=== PATIENT | female | born 1945 ===

== ENCOUNTER 2017-11-04 14:07 | Emergency (ER) | payer MEDICARE, OTHER ==
[2017-11-04 14:47] VITALS: BP 156/85; PULSE 58; RESP 17; TEMP 97; O2SAT 97
--- NOTE | 2017-11-04 17:01 | ED PDOC ---
Lower Extremity Pain/Injury Time Seen by Provider: 11/04/17 16:08 Chief Complaint (Nursing): Lower Extremity Problem/Injury Chief Complaint (Provider): Lower Extremity Problem/Injury History Per: Patient History/Exam Limitations: no limitations Onset/Duration Of Symptoms: Days (x1) Current Symptoms Are (Timing): Still Present Additional Complaint(s): 72 year old female with medical history of hypertension and osteoporosis, who presents to the emergency department with a complaint of left hip pain radiating to lower back and left thigh ongoing since this morning when she woke up. Denied any fever, chills, nausea, vomiting, difficulty urinating, bloody urine, incontinence, diarrhea, constipation, weakness or paresthesia. PMD: Rebekah Panchal MD Past Medical History Reviewed: Historical Data, Nursing Documentation, Vital Signs Vital Signs: Last Vital Signs Temp 97 F L 11/04/17 14:43 Pulse 58 L 11/04/17 14:43 Resp 17 11/04/17 14:43 BP 156/85 H 11/04/17 14:43 Pulse Ox 97 11/04/17 14:43 - Medical History PMH: Anxiety, Arthritis, HTN, Osteoporosis - Surgical History Surgical History: Denies: No Surg Hx Other surgeries: left foot - Family History Family History: States: Unknown Family Hx - Social History Current smoker - smoking cessation education provided: No Alcohol: None Drugs: Denies - Home Medications Home Medications: Ambulatory Orders Medication Instructions Recorded Alendronate Sodium [Alendronate 35 mg PO QWK 03/25/16 (Fosamax)] Ciprofloxacin [Cipro] 500 mg PO BID #14 tab 03/25/16 DiphenhydrAMINE [Benadryl] 50 mg PO Q8 PRN #30 cap 03/25/16 Glucon Plus 1 tab PO DAILY 03/25/16 Lisinopril/Hydrochlorothiazide 1 tab PO DAILY 03/25/16 [Lisinopril-Hydrochlorothiazide 25 mg-20 mg] Methylprednisolone [Medrol Dose 4 mg PO DAILY #21 mg 03/25/16 Pack (21 tabs)] Nabumetone [Nabumetone] 500 mg PO BID 03/25/16 Propranolol HCl [Inderal Xl] 120 mg PO DAILY 03/25/16 Calamine/Pramoxine [Caladryl] 180 ml TP DAILY #1 bottle 04/02/16 Fluconazole [Diflucan] 150 mg PO ONCE #1 tab 04/02/16 Prednisone 20 mg PO BID #8 tablet 04/02/16 traMADol [Ultram] 25 mg PO TID PRN #15 tab 11/04/17 - Allergies Allergies/Adverse Reactions: Allergies Allergy/AdvReac Type Severity Reaction Status Date / Time No Known Allergies Allergy Verified 11/04/17 14:42 Review of Systems ROS Statement: Except As Marked, All Systems Reviewed And Found Negative Constitutional: Negative for: Fever, Chills Gastrointestinal: Negative for: Nausea, Vomiting, Diarrhea, Constipation Genitourinary Female: Positive for: Pelvic Pain (left-sided). Negative for: Dysuria, Incontinence, Hematuria Musculoskeletal: Positive for: Back Pain (low), Leg Pain (left thigh) Neurological: Negative for: Weakness (or paresthesia) Physical Exam - Reviewed Nursing Documentation Reviewed: Yes Vital Signs Reviewed: Yes - Physical Exam Appears: Positive for: Well, Non-toxic, No Acute Distress Neck: Positive for: Normal, Supple Cardiovascular/Chest: Positive for: Regular Rate, Rhythm, Chest Non Tender Respiratory: Positive for: Normal Breath Sounds. Negative for: Decreased Breath Sounds, Respiratory Distress Pulses-Dorsalis Pedis (L): 2+ Pulses-Dorsalis Pedis (R): 2+ Gastrointestinal/Abdominal: Positive for: Normal Exam, Soft. Negative for: Tenderness, Mass, Guarding, Rebound Back: Positive for: Normal Inspection, Other (+mild tenderness to the L paralumbar, negative straight leg raises). Negative for: L CVA Tenderness, R CVA Tenderness, Vertebral Tenderness Extremity: Positive for: Normal ROM (lower), Tenderness (hip midly), Capillary Refill (normal). Negative for: Pedal Edema (bilateral), Calf Tenderness ( bilateral), Deformity (lower), Swelling Neurologic/Psych: Positive for: Alert (x3), passenger booking clerk II-XII (intact), Oriented, Gait (ambulates with a normal gait). Negative for: Motor/Sensory Deficits - ECG O2 Sat by Pulse Oximetry: 97 (RA) Pulse Ox Interpretation: Normal Medical Decision Making Medical Decision Making: Initial Impression: Hip pain; back pain Initial Plan: * Tylenol 650mg PO * Xray hip with pelvis XR right hip: no fracture, no dislocation, as read by PA Patient advised that official radiology read of XR is still pending and will call the patient if there is any discrepancy within 24 hours. X-ray results discussed with the patient great detail. Diagnosis of possible sciatica discussed with the patient. On reevaluation patient reports that her pain is improving and she is able to get up and and walk in the emergency room with a normal gait. Based on history, exam and diagnostic results plan will be for outpatient follow-up with PMD. Advised to follow up with primary care physician in 1-2 days without fail. Advised to take [id number] Tylenol as needed for pain and to take prescribed medication - tramadol only for moderate pain as prescribed. Return to the emergency room at any time for any new or worsening symptoms. Patient states she fully agrees with and understands discharge instructions. States that she agrees with the plan and disposition. Verbalized and repeated discharge instructions and plan. I have given the patient opportunity to ask any additional questions. Scribe Attestation: Documented by Amanda Sinha, acting as a scribe for Sabra Chen PA-C. Provider Scribe Attestation: All medical record entries made by the Scribe were at my direction and personally dictated by me. I have reviewed the chart and agree that the record accurately reflects my personal performance of the history, physical exam, medical decision making, and the department course for this patient. I have also personally directed, reviewed, and agree with the discharge instructions and disposition. Disposition - Clinical Impression Clinical Impression: Hip pain, Sciatica - Patient ED Disposition Is Patient to be Admitted: No Counseled Patient/Family Regarding: Studies Performed, Diagnosis, Need For Followup, Rx Given - Disposition Disposition: Routine/Home Disposition Time: 17:00 Condition: STABLE Additional Instructions: Thank you for letting us take care of you today. You were treated for left hip pain, sciatica. The emergency medical care you received today was directed at your acute symptoms. If you were prescribed any medication, please fill it and take as directed. It may take several days for your symptoms to resolve. Return to the Emergency Department if your symptoms worsen, do not improve, or if you have any other problems. Please contact your doctor in 2 days for re-evaluation and follow up / or call one of the physicians/clinics you have been referred to that are listed on the Patient Visit Information form that is included in your discharge packet. Bring any paperwork you were given at discharge with you along with any medications you are taking to your follow up visit. Our treatment cannot replace ongoing medical care by a primary care provider (PCP) outside of the emergency department. Thank you for allowing the [facility] team to be part of your care today. If you had an X-Ray : A Radiologist will review the ED reading if any change in treatment is needed we will contact you. Prescriptions: traMADol [Ultram] 25 mg PO TID PRN #15 tab PRN Reason: Pain, Moderate (4-7) Instructions: Sciatica (ED), Hip Pain (ED) Forms: [employer] (Turkmen) Print Language: SLOVENIAN - PA / ASSOCIATE SOFTWARE DEVELOPER / Resident Statement MD/DO has reviewed & agrees with the documentation as recorded.
--- NOTE | 2017-11-04 18:25 | RAD ---
PROCEDURE: Left Hip X-ray Radiographs. HISTORY: Pain. No history of recent/ related trauma provided COMPARISON: None. FINDINGS: BONES: Normal. No fracture. JOINTS: Normal. SOFT TISSUES: Normal. OTHER FINDINGS: Calcified nonaneurysmal abdominal aorta. IMPRESSION: No significant or acute findings to account for/ related to the clinical presentation.
== END 2017-11-04 17:44 | disposition home or self-care (01) ==
LOC: H.ER 14:07
DX: M81.0 Age-related osteoporosis without current pathological fracture (principal); F41.9 Anxiety disorder, unspecified; I10 Essential (primary) hypertension